=== PATIENT | female | born 1990 | race Caucasian/White ===

== ENCOUNTER 2018-10-29 17:49 | Emergency (ER) | payer OTHER ==
[~2018-10-29] VITALS: Ht 165.1 cm; Wt 50.3 kg
== END 2018-10-29 23:51 | disposition home or self-care (01) ==
LOC: ER 17:49
DX: R19.7 Diarrhea, unspecified (principal); R10.2 Pelvic and perineal pain; Z34.82 Encounter for supervision of other normal pregnancy, second trimester

== ENCOUNTER 2019-02-27 11:51 | Inpatient (IN) | payer OTHER ==
[~2019-02-27] VITALS: Ht 162.6 cm; Wt 62.1 kg
[2019-02-27] MEDS ORDERED: FOLIC ACID0.4 MG PO (12:52)
[2019-02-27] MEDS ORDERED: IRON325 MG PO (12:53)
[2019-02-27] MEDS ORDERED: PRENATA CHEWAB1 EACH PO (12:53)
== END 2019-03-06 11:08 | DRG 807 ==
LOC: OB/GYN 11:51 → LDR 11:51 → OB/GYN 02-28 12:39
PROVIDERS: ADMIT Obstetrics & Gynecology
PROC: 4A1HXCZ Monitoring of Products of Conception, Cardiac Rate, External Approach (ICD-10-PCS; 2019-02-27)
PROC: BY4FZZZ Ultrasonography of Third Trimester, Single Fetus (ICD-10-PCS; 2019-02-27)
PROC: 10E0XZZ Delivery of Products of Conception, External Approach (ICD-10-PCS; principal; 2019-03-04)
PROC: 3E033VJ Introduction of Other Hormone into Peripheral Vein, Percutaneous Approach (ICD-10-PCS; 2019-03-04)
DX: O60.14X0 Preterm labor third trimester with preterm delivery third trimester, not applicable or unspecified (principal); Z37.0 Single live birth; Z3A.36 36 weeks gestation of pregnancy